=== PATIENT | female | born 1990 | race Two or more races ===

== ENCOUNTER 2017-06-04 08:00 | Outpatient (CLI) | payer MEDICAID | END 2017-06-04 08:01 | disposition home or self-care (01) | LOC: LAB.R 08:00 | PROVIDERS: ATTEND Obstetrics & Gynecology | DX: Z11.3 Encounter for screening for infections with a predominantly sexual mode of transmission (principal) | CPT/HCPCS: 87491; 87591 ==

== ENCOUNTER 2017-08-03 08:00 | Outpatient (CLI) | payer MEDICAID | END 2017-08-03 08:01 | disposition home or self-care (01) | LOC: LAB.R 08:00 | PROVIDERS: ATTEND Obstetrics & Gynecology | DX: Z11.3 Encounter for screening for infections with a predominantly sexual mode of transmission (principal) | CPT/HCPCS: 87491; 87591 ==

== ENCOUNTER 2017-10-30 14:37 | Outpatient (CLI) | payer MEDICAID | END 2017-10-30 14:38 | disposition home or self-care (01) | LOC: LAB.R 14:37 | PROVIDERS: ATTEND Registered Nurse | DX: Z11.3 Encounter for screening for infections with a predominantly sexual mode of transmission (principal) | CPT/HCPCS: 87491; 87591 ==

== ENCOUNTER 2017-12-11 08:00 | Outpatient (CLI) | payer MEDICAID | END 2017-12-11 08:01 | disposition home or self-care (01) | LOC: LAB.R 08:00 | PROVIDERS: ATTEND Registered Nurse | DX: Z30.430 Encounter for insertion of intrauterine contraceptive device (principal) | CPT/HCPCS: 87491; 87591 ==

== ENCOUNTER 2018-03-17 08:00 | Outpatient (CLI) | payer MEDICAID | END 2018-03-17 08:01 | disposition home or self-care (01) | LOC: LAB.R 08:00 | PROVIDERS: ATTEND Registered Nurse | DX: Z11.3 Encounter for screening for infections with a predominantly sexual mode of transmission (principal) | CPT/HCPCS: 87491; 87591 ==

== ENCOUNTER 2018-06-08 08:00 | Outpatient (CLI) | payer MEDICAID | END 2018-06-08 23:59 | LOC: LAB.R 08:00 | PROVIDERS: ATTEND Registered Nurse | DX: B37.3 Candidiasis of vulva and vagina (principal) | CPT/HCPCS: 87491; 87591 ==

== ENCOUNTER 2019-03-07 18:37 | Emergency (ER) | payer MEDICAID ==
--- NOTE | 2019-03-07 20:39 | ED Physician Documentation ---
PD HPI SKIN - Stated complaint Stated Complaint: CYST ON BACK - Chief complaint Chief Complaint: General - History obtained from History obtained from: Patient - History of Present Illness Timing - onset: How many weeks ago (1 1/2 weeks of cyst tender on tailbone area and gotten larger and red, more painful the past couple of days.) Timing - details: Gradual onset, Still present Location: Other (tailbone area) Quality / character: Painful, Discolored (red), Swelling. 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 : None HEENT: None Psych: None Musculoskeletal: None Derm: None - Past Surgical History Past Surgical History: Yes - Present Medications Home Medications: Ambulatory Orders Medication Instructions Recorded Confirmed Vit W-Ca,Fe,FA(<1 mg) 1 tab PO DAILY 02/17/14 02/17/14 [ Vitamins] Adalimumab [Humira] 10 mg SQ 03/07/19 Sulfamethox/Trimeth 800/160 1 each PO BID #14 tablet 03/07/19 [Bactrim Ds 800/160] - Allergies Allergies/Adverse Reactions: Allergies Allergy/AdvReac Type Severity Reaction Status Date / Time No Known Drug Allergies Allergy Verified 03/07/19 18:45 - Social History Does the pt smoke?: No Smoking Status: Former smoker Does the pt drink ETOH?: Yes Does the pt have substance abuse?: No - Immunizations Immunizations are current?: Yes - POLST Patient has POLST: No PD ED PE NORMAL - Vitals Vital signs reviewed: Yes - General General: Alert and oriented X 3, No acute distress, Well developed/nourished - Abdomen Abdomen: Soft, Non tender - Back Back: Other (tailbone area with focal tenderness left of midline, with redness and swelling. fluctuance. ) - Derm Derm: Normal color, Warm and dry Results - Vitals Vitals: Oxygen O2 Source Room air - Labs Labs: Microbiology 03/07/19 21:09 Wound Culture - Final Abscess Procedures - Abscess I&D (location) pilonidal area Preparation: Lidocaine 1%, With epi Incision: Incised with scalpel, Purulent drainage, Irrigated, Culture obtained. No: Packed Other: Pt tolerated well, Dressing applied, Antibiotic prescribed PD MEDICAL DECISION MAKING - ED course Complexity details: considered differential (infected recurrent pilonidal cyst, with I&D.), d/w patient Departure - Departure Disposition: 01 Home, Self Care Clinical Impression: Infected pilonidal cyst Condition: Stable Record reviewed to determine appropriate education?: Yes Instructions: ED Cyst Pilonidal Infected IandD Prescriptions: Sulfamethox/Trimeth 800/160 [Bactrim Ds 800/160] 1 each PO BID #14 tablet Comments: Warm soaks or warm moist towels to the area a few times a day. This will help promote drainage from the incision hole. Bactrim antibiotic twice daily for a week for the infection. Naproxen or ibuprofen 2-3 times a day for pain and inflammation. Add Tylenol if needed. Recheck if not improved over the next few days. We did do a culture and will result in 2 to 3 days and will call you if we need to change antibiotics based on that. Discharge Date/Time: 03/07/19 21:54
[2019-03-07] MEDS ORDERED: SULFAMETH/TRIMETH DS 800/160 MG TABLET PO STA (21:12)
[2019-03-07] MEDS ORDERED: IBUPROFEN 600 MG TABLET PO STA (21:12)
[2019-03-07] MEDS ORDERED: ACETAMINOPHEN 325 MG TABLET PO STA (21:12)
[2019-03-07 21:54] VITALS: BP 101/51
== END 2019-03-07 21:54 | disposition home or self-care (01) ==
LOC: ED 18:37
DX: L05.91 Pilonidal cyst without abscess (principal); Z87.891 Personal history of nicotine dependence
CPT/HCPCS: 10080; 87070; 87205; 99283; A9270

== ENCOUNTER 2019-07-27 09:30 | Outpatient (CLI) | payer MEDICAID ==
[2019-07-27 20:28] LABS: CANDIDA GROUP DNA NEGATIVE (NEGATIVE); CANDIDA KRUSEI DNA NEGATIVE (NEGATIVE); TRICHOMONAS VAGINALIS DNA NEGATIVE (NEGATIVE)
[2019-07-27 21:59] LABS: TRICHOMONAS VAGINALIS DNA NEGATIVE (NEGATIVE)
== END 2019-07-27 23:59 | disposition home or self-care (01) ==
LOC: LAB.R 09:30
PROVIDERS: ATTEND Nurse Practitioner Obstetrics & Gynecology
DX: Z11.3 Encounter for screening for infections with a predominantly sexual mode of transmission (principal); L29.8 Other pruritus
CPT/HCPCS: 87491; 87591; 87661; 87801

== ENCOUNTER 2019-08-04 18:03 | Outpatient (CLI) | payer MEDICAID ==
[2019-08-05 13:36] LABS: HEPATITIS C ANTIBODY NON-REACTIVE (NON-REACTIVE)
[2019-08-05 14:06] LABS: HIV AG/AB 4TH GEN NON-REACTIVE (NON-REACTIVE)
[2019-08-06 12:51] LABS: HSV 1 IGG TYPE SPECIFIC AB <0.90 index; HSV 2 IGG TYPE SPECIFIC AB <0.90 index
== END 2019-08-04 18:04 | disposition home or self-care (01) ==
LOC: LAB 18:03
PROVIDERS: ATTEND Nurse Practitioner Obstetrics & Gynecology
DX: Z11.3 Encounter for screening for infections with a predominantly sexual mode of transmission (principal)
CPT/HCPCS: 36415; 81599; 86592; 86695; 86696; 86803; 87389; 87491; 87591; 87661

== ENCOUNTER 2020-06-08 08:41 | Emergency (ER) | payer MEDICAID ==
--- NOTE | 2020-06-08 09:16 | XRAY Report ---
PROCEDURE: Knee 3 View RT INDICATIONS: injury TECHNIQUE: 3 views of the right knee(s) were acquired. COMPARISON: None. FINDINGS: Bones: No fractures or dislocations. No suspicious bony lesions. Soft tissues: No joint effusion. No suspicious soft tissue calcifications. IMPRESSION: Negative examination. If the patient's pain or other symptoms persist, consider further evaluation wi MRI. Reviewed by: Nicola Asencio MD on 06/08/2020 9:14 AM PDT Approved by: Nicola Asencio MD on 06/08/2020 9:14 AM PDT Station ID: [id number]
--- NOTE | 2020-06-08 09:57 | ED Physician Documentation ---
History of Present Illness - Stated complaint Stated Complaint: RT KNEE PX - Chief complaint Chief Complaint: Ext Problem - History obtained from History obtained from: Patient - Additonal information Additional information: Patient comes emergency department complaining of right knee pain that started yesterday. She states that she was having some pain in the arch of her left foot throughout the day and that later, she noticed pain in her right knee. She states that it hurts much to lay on it last night that she was crying. However, she states that if she supports her right thigh and attempts to flex and extend the knee, she does not have any pain. She states that she has felt a little bit of a popping feeling in her medial right knee. Patient denies any direct trauma. She has not been working in any sort of sports. No running. Patient states that she has no history of injury to her procedure involving her right knee. Patient does note that a couple of weeks ago, she had pain in her bilateral wrists and was unable to open jars because of it. This lasted for a few days and then went away on its own. Patient denies any joint issues prior. She does note that her mother has rheumatoid arthritis, but patient has never been tested for it. No joint swelling, including the patient's right knee. No other complaints at this time. Review of Systems Ten Systems: 10 systems reviewed and negative Constitutional: reports: Reviewed and negative Eyes: reports: Reviewed and negative Ears: reports: Reviewed and negative Nose: reports: Reviewed and negative Throat: reports: Reviewed and negative Cardiac: reports: Reviewed and negative Respiratory: reports: Reviewed and negative GI: reports: Reviewed and negative : reports: Reviewed and negative Skin: reports: Reviewed and negative Musculoskeletal: reports: Joint pain Neurologic: reports: Reviewed and negative Psychiatric: reports: Reviewed and negative Endocrine: reports: Reviewed and negative Immunocompromised: reports: Reviewed and negative PD PAST MEDICAL HISTORY - Past Medical History Cardiovascular: None Respiratory: None Neuro: None Endocrine/Autoimmune: None GI: None 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 : None HEENT: None Psych: None Musculoskeletal: None Derm: None - Past Surgical History Past Surgical History: Yes - Present Medications Home Medications: Ambulatory Orders Medication Instructions Recorded Confirmed Vit W-Ca,Fe,FA(<1 mg) 1 tab PO DAILY 02/17/14 02/17/14 [ Vitamins] Adalimumab [Humira] 10 mg SQ 03/07/19 Sulfamethox/Trimeth 800/160 1 each PO BID #14 tablet 03/07/19 [Bactrim Ds 800/160] - Allergies Allergies/Adverse Reactions: Allergies Allergy/AdvReac Type Severity Reaction Status Date / Time No Known Drug Allergies Allergy Verified 06/08/20 08:46 - Social History Does the pt smoke?: No Smoking Status: Never smoker Does the pt drink ETOH?: Yes Does the pt have substance abuse?: No - Immunizations Immunizations are current?: Yes - POLST Patient has POLST: No PD ED PE NORMAL - Vitals Vital signs reviewed: Yes - General General: Alert and oriented X 3, No acute distress - HEENT HEENT: Atraumatic, PERRL, EOMI, Moist mucous membranes - Neck Neck: Supple, no meningeal sign - Cardiac Cardiac: Strong equal pulses - Respiratory Respiratory: No respiratory distress - Derm Derm: Normal color, Warm and dry, No rash - Extremities Extremities: No deformity, No tenderness to palpate, No edema, No calf tenderness / cord - Neuro Neuro: Alert and oriented X 3, 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 We have discussed OTC pain control at home, and the need for follow-up if her sx don't resolve in the next week or two. We have also discussed that given her family h/o RA, this possibility should be explored by her PCP if pt continues to have random, spontaneous joint issues. Departure - Departure Disposition: 01 Home, Self Care Clinical Impression: Knee pain Qualifiers: Chronicity: acute Laterality: right Qualified Code(s): M25.561 - Pain in right knee Condition: Stable Instructions: ED Meniscal Injury Knee Poss, ED Knee Pain UKO Comments: There is no evidence of a serious problem with your knee today. Your x-ray looks good. However, as we have discussed, if you continue to have various joints with pain and dysfunction, you should talk to your doctor about being evaluated for rheumatoid arthritis, since this does run in your family. At this point in time, however, you may use ibuprofen and Tylenol, and get a neoprene sleeve from when the pharmacy is or general store, such as [employer] or [employer], and use this for support and comfort. Discharge Date/Time: 06/08/20 10:27
[2020-06-08 10:27] VITALS: BP 121/72
== END 2020-06-08 10:27 | disposition home or self-care (01) ==
LOC: ED 08:41
DX: M25.561 Pain in right knee (principal); Z82.61 Family history of arthritis
CPT/HCPCS: 99282; 99283

== ENCOUNTER 2020-06-13 11:13 | Outpatient (CLI) | payer MEDICAID ==
[2020-06-13 18:38] LABS: MEAN CORPUSCULAR HEMOGLOBIN 22.5 pg (27.0-31.0); MEAN CORPUSCULAR HGB CONC 29.9 g/dL (32.0-36.0); MEAN CORPUSCULAR VOLUME 75.4 fL (81.0-99.0); MEAN PLATELET VOLUME 11.2 fL (7.9-10.8); RED BLOOD COUNT 4.88 10^6/uL (4.20-5.40); RED CELL DISTRIBUTION WIDTH 15.7 % (12.0-15.0); WHITE BLOOD COUNT 8.4 x10^3/uL (4.8-10.8)
[2020-06-13 18:39] LABS: URIC ACID 4.8 mg/dL (2.6-7.2)
[2020-06-13 19:05] LABS: CRP - C-REACTIVE PROTEIN < 1.0 mg/dL (0-1.0)
[2020-06-13 20:18] LABS: RHEUMATOID FACTOR NEGATIVE (Negative)
[2020-06-15 16:06] LABS: DNA (DS) ANTIBODY 3 IU/mL
[2020-06-15 21:15] LABS: CYCLIC CITRULL PEPTIDE CCP IGG <16 UNITS
[2020-06-20 15:15] LABS: ANA SCREEN NEGATIVE (NEGATIVE)
== END 2020-06-13 23:59 | disposition home or self-care (01) ==
LOC: LAB.WCP 11:13
PROVIDERS: ATTEND Family Medicine
DX: M25.50 Pain in unspecified joint (principal)
CPT/HCPCS: 36415; 84550; 85027; 85651; 86038; 86140; 86200; 86225; 86430

== ENCOUNTER 2020-11-07 17:18 | Outpatient (CLI) | payer MEDICAID ==
[2020-11-08 12:40] LABS: HEPATITIS B SURFACE ANTIGEN NON-REACTIVE (NON-REACTIVE); HEPATITIS C ANTIBODY NON-REACTIVE (NON-REACTIVE)
[2020-11-08 13:56] LABS: HIV AG/AB 4TH GEN NON-REACTIVE (NON-REACTIVE)
[2020-11-09 13:01] LABS: HSV 1 IGG TYPE SPECIFIC AB <0.90 index; HSV 2 IGG TYPE SPECIFIC AB <0.90 index
== END 2020-11-07 17:19 | disposition home or self-care (01) ==
LOC: LAB 17:18
PROVIDERS: ATTEND Nurse Practitioner Obstetrics & Gynecology
DX: Z11.3 Encounter for screening for infections with a predominantly sexual mode of transmission (principal)
CPT/HCPCS: 36415; 81599; 86592; 86593; 86695; 86696; 86780; 86803; 87340; 87389

== ENCOUNTER 2020-11-08 07:00 | Outpatient (CLI) | payer MEDICAID ==
[2020-11-08 23:48] LABS: TRICHOMONAS VAGINALIS DNA NEGATIVE (NEGATIVE)
== END 2020-11-08 23:59 | disposition home or self-care (01) ==
LOC: LAB.R 07:00
PROVIDERS: ATTEND Nurse Practitioner Obstetrics & Gynecology
DX: Z11.3 Encounter for screening for infections with a predominantly sexual mode of transmission (principal)
CPT/HCPCS: 87491; 87591; 87661

== ENCOUNTER 2021-03-08 14:46 | Outpatient (CLI) | payer MEDICAID | END 2021-03-08 14:47 | disposition home or self-care (01) | LOC: COV 14:46 | PROVIDERS: ATTEND Surgery | DX: Z01.812 Encounter for preprocedural laboratory examination (principal); M79.622 Pain in left upper arm; M79.621 Pain in right upper arm; R22.9 Localized swelling, mass and lump, unspecified; Z20.822 Contact with and (suspected) exposure to COVID-19 ==

== ENCOUNTER 2021-03-11 06:33 | Day surgery (SDC) | payer MEDICAID ==
[2021-03-11 06:55] LABS: HCG UR QUAL NEGATIVE
[2021-03-11] MEDS ORDERED: LACTATED RINGERS 1,000 ML IV ONE ×2 (07:01→09:36)
[2021-03-11] MEDS ORDERED: BUPIVACAINE 0.5%-EPI 1:200000 PF 30 ML VIAL ONE (07:15)
[2021-03-11] MEDS ORDERED: LIDOCAINE-MPF 1% 30 ML VIAL ONE (07:15)
[2021-03-11] MEDS ORDERED: MIDAZOLAM 2 MG/2 ML VIAL ONE (07:24)
[2021-03-11] MEDS ORDERED: LIDOCAINE-MPF 2% 5 ML VIAL ONE (07:24)
[2021-03-11] MEDS ORDERED: PROPOFOL 200 MG/20 ML VIAL IVP ONE ×2 (07:24→09:25)
[2021-03-11] MEDS ORDERED: fentaNYL 100 MCG/2 ML VIAL ONE (07:24)
[2021-03-11] MEDS ORDERED: ceFAZolin 2 GM/50 ML 2 GM/50 ML BAG IV ONE (07:24)
[2021-03-11] MEDS ORDERED: DEXAMETHASONE 4 MG/ML VIAL ONE (07:25)
[2021-03-11] MEDS ORDERED: ONDANSETRON 4 MG/2 ML VIAL ONE ×2 (07:25→10:58)
--- NOTE | 2021-03-11 07:25 | ANESTHESIA ---
Pre-Anesthesia VS, & Labs - Diagnosis painful bilateral axillary breast tissue - Procedure excision of bilateral axillary breast tissue Vital Signs: Temp Pulse Resp BP Pulse Ox 36.2 C L 85 15 105/72 97 03/11/21 07:01 03/11/21 07:01 03/11/21 07:01 03/11/21 07:01 03/11/21 07:01 Height: 5 ft 8 in Weight (kg): 91.8 kg Body Mass Index: 30.7 BMI Classification: Obese - NPO >8 hours - Is Patient ?: No Home Medications and Allergies Home Medications: Ambulatory Orders Etonogestrel [Nexplanon] 68 mg SQ ONCE 02/26/21 Adalimumab [Humira] 40 mg SQ OAW 03/07/19 Etonogestrel [Nexplanon] 68 mg SQ ONCE 02/26/21 Allergies/Adverse Reactions: Allergies Allergy/AdvReac Type Severity Reaction Status Date / Time lavender (Lavandula Allergy Rash, Verified 03/11/21 07:09 angustifolia) headache Anes History & Medical History - Anesthetic History Anesthesia Complications: reports: No previous complications - Medical History Cardiovascular: reports: None Pulmonary: reports: None Gastrointestinal: reports: None Urinary: reports: None Neuro: reports: None Musculoskeletal: reports: Osteoarthritis Endocrine/Autoimmune: reports: None Blood Disorders: reports: None Skin: reports: Eczema, Other (Hydratanosis supurlative) Smoking Status: Former smoker (quit 8 years ago) Psychosocial: reports: Alcohol (once per week, 1-2 beers) History of Cancer?: No - Surgical History Dermatologic: reports: Other (HS excision jordan groin area) Exam General: Alert, Oriented x3, Cooperative, No acute distress Dental: WNL Mouth Openin Fingerbreadth Neck Mobility: Normal Mallampati classification: I Thyromental Distance: 4-6 cm Respiratory: Lungs clear, Normal breath sounds, No respiratory distress, No accessory muscle use Cardiovascular: Regular rate, Normal S1, Normal S2, No murmurs Mental/Cognitive Status: Alert/Oriented X3, Normal for patient Plan Anesthesia Type: General Consent for Procedure(s) Verified and Reviewed: Yes Code Status: Attempt Resuscitation ASA classification: 2-Mild systemic disease Is this case an emergency?: No
[2021-03-11] MEDS: SCOPOLAMINE PATCH TOP ONE ×2 (07:30→07:40)
[2021-03-11] MEDS ORDERED: SCOPOLAMINE PATCH TOP SCH (08:00)
[2021-03-11] MEDS ORDERED: LIDOCAINE 1% 50 ML MDV SUBQ ONE (08:40)
[2021-03-11] MEDS ORDERED: BUPIVACAINE 0.5%-EPI 1:200000 PF 30 ML VIAL SUBQ ONE (08:42)
[2021-03-11] MEDS ORDERED: ONDANSETRON 4 MG/2 ML VIAL IVP PRN (09:14)
[2021-03-11] MEDS ORDERED: MORPHINE 2 MG/ML CARPUJECT IVP PRN (09:14)
[2021-03-11] MEDS ORDERED: HYDROmorphone 0.5 MG/0.5 ML SYRINGE IVP PRN (09:14)
[2021-03-11] MEDS ORDERED: ATROPINE ABBOJECT 1 MG/10 ML SYRINGE IVP PRN (09:14)
[2021-03-11] MEDS ORDERED: fentaNYL 100 MCG/2 ML VIAL IVP PRN (09:14)
[2021-03-11] MEDS ORDERED: NALOXONE 0.4 MG/ML VIAL IVP PRN (09:14)
[2021-03-11] MEDS ORDERED: KETOROLAC 15 MG/ML VIAL IVP PRN (09:49)
[2021-03-11] MEDS ORDERED: LACTATED RINGERS 1,000 ML IV SCH (10:00)
[2021-03-11] MEDS ORDERED: oxyCODONE 5 MG TABLET PO PRN (10:20)
[2021-03-11] MEDS ORDERED: oxyCODONE 5 MG TABLET ONE (10:35)
[2021-03-11 11:37] VITALS: BP 106/61
--- NOTE | 2021-03-11 13:51 | ANESTHESIA POST OP EVALUATION ---
Anesthesia Post Eval - Post Anesthesia Eval Vitals: Last Vital Signs Temp 36.3 C L 03/11/21 11:36 Pulse 79 03/11/21 11:36 Resp 16 03/11/21 11:36 BP 106/61 03/11/21 11:36 Pulse Ox 99 03/11/21 11:36 CV Function Including HR & BP: Stable Pain Control: Satisfactory Nausea & Vomiting: Negative Mental Status: Baseline Respiratory Status: Airway Patent Hydration Status: Satisfactory Anesthesia Complications: None
--- NOTE | 2021-03-26 16:31 | OPERATIVE REPORT ---
Operative Report - General Planned Procedure: Excision of bilateral axillary breast tissue Pre-Op Diagnosis: Symptomatic bilateral axillary breast tissue Procedure Performed: Excision of bilateral axillary breast tissue with drain placement Post Op Diagnosis: Symptomatic bilateral axillary breast tissue. - Procedure Note Primary Surgeon: Brian Anesthesia Provider: GRETA Mack Anesthesia Technique: General LMA Pathology: 1. Right axillary tissue to pathology in formalin 2. Left axillary tissue to pathology in formalin Estimated Blood Loss (mL): 50 Drain/Tube Type: Dillon drain (2 - 15 Green[place]ic Dillon drains. One in each pocket) Indications: Symptomatic and enlarged bilateral axillary breast tissue Findings: Benign tissue consistent with breast origin in bilateral axillary spaces Complications: None apparent - Other Other Information/Narrative: After obtaining informed consent, the patient is brought to the operating room and placed in the supine position on the operating table. Following successful induction of general endotracheal anesthesia, appropriate padding of all bony prominences, and placement of appropriate monitors, bilateral axilla and chest were prepped and draped in the standard surgical fashion. A timeout was held per scope protocol. All elements of the surgical safety checklist were followed before, during, and after the procedure. We began on the right side. An area was infiltrated with a mixture of local anesthetics in a natural skin fold in the right axilla. An incision was created here and carried down through the skin and subcutaneous tissue. Breast tissue was revealed. This tissue was normal in appearance with identifiable Giovani ligaments consistent with normal breast tissue. The tissue was carefully dissected off of the dermis in a circumferential fashion. It was then lifted off of the axillary fat pad in a medial to lateral fashion using mixture of cautery and sharp dissection. The tissue was passed from the table as a specimen. The axilla was then checked for hemostasis. A 15 Green[place]ic Dillon drain was placed in the axillary pocket and brought out medially. The wound was then closed in 2 layers with Vicryl and Monocryl suture. We turned our attention to the left breast. Once again, and area was infiltrated with a mixture of local anesthetics in a natural skin fold in the left axilla. An incision was created here and carried down through the skin and subcutaneous tissue. Breast tissue was revealed. This tissue was normal in appearance with identifiable Giovani ligaments consist ent with normal breast tissue. The tissue was carefully dissected off of the dermis in a circumferential fashion. It was then lifted off of the axillary fat pad in a medial to lateral fashion using mixture of cautery and sharp dissection. The tissue was passed from the table as a specimen. The axilla was then checked for hemostasis. A 15 [place]ic Dillon drain was placed in the axillary pocket and brought out medially. The wound was then closed in 2 layers with Vicryl and Monocryl suture. All sponge, needle, and instrument counts were correct at the conclusion of the case. The patient was let awake from anesthesia without difficulty and taken to the postanesthesia care unit in good condition.
== END 2021-03-11 06:34 | disposition home or self-care (01) ==
LOC: SDS 06:33
PROVIDERS: ATTEND Surgery
PROC: 0HBV0ZZ Excision of Bilateral Breast, Open Approach (ICD-10-PCS; principal; 2021-03-11 07:30)
DX: Q83.1 Accessory breast (principal); M79.622 Pain in left upper arm; M79.621 Pain in right upper arm; D64.9 Anemia, unspecified; L73.2 Hidradenitis suppurativa; D57.3 Sickle-cell trait; E66.9 Obesity, unspecified; Z68.30 Body mass index [BMI] 30.0-30.9, adult; Z87.891 Personal history of nicotine dependence; Z79.3 Long term (current) use of hormonal contraceptives; Z79.899 Other long term (current) drug therapy
CPT/HCPCS: 19120; 81025; 88305; A9270; J0690; J3490; J7120

== ENCOUNTER 2021-07-01 06:23 | Day surgery (SDC) | payer MEDICAID ==
[2021-07-01] MEDS ORDERED: LACTATED RINGERS 1,000 ML IV ONE (06:29)
[2021-07-01 06:42] LABS: HCG UR QUAL NEGATIVE
[2021-07-01] MEDS ORDERED: LIDOCAINE 2%-EPI 1:100000 20 ML MDV ONE (07:05)
[2021-07-01] MEDS ORDERED: BUPIVACAINE 0.25% PF 30 ML VIAL ONE (07:06)
--- NOTE | 2021-07-01 07:07 | ANESTHESIA ---
Pre-Anesthesia VS, & Labs - Diagnosis axillary nodules, right - Procedure right axillary nodule excision Vital Signs: Temp Pulse Resp BP Pulse Ox 36.1 C L 80 16 119/67 99 07/01/21 06:36 07/01/21 06:36 07/01/21 06:36 07/01/21 06:36 07/01/21 06:36 Height: 5 ft 8 in Weight (kg): 98 kg Body Mass Index: 32.8 BMI Classification: Obese - NPO >8 hours - Is Patient ?: No Home Medications and Allergies Etonogestrel [Nexplanon] 68 mg SQ ONCE 02/26/21 Allergies/Adverse Reactions: Allergies Allergy/AdvReac Type Severity Reaction Status Date / Time lavender (Lavandula Allergy Rash, Verified 03/11/21 07:09 angustifolia) headache Anes History & Medical History - Anesthetic History Anesthesia Complications: reports: No previous complications - Medical History Cardiovascular: reports: None Pulmonary: reports: None Gastrointestinal: reports: None Urinary: reports: None Neuro: reports: None Musculoskeletal: reports: None Endocrine/Autoimmune: reports: None Blood Disorders: reports: None Skin: reports: Eczema Smoking Status: Former smoker (quit 8 years ago) History of Cancer?: No - Surgical History Dermatologic: reports: Other (HS excision jordan groin area) Exam General: Alert Dental: WNL Neck Mobility: Normal Mallampati classification: I Thyromental Distance: greater than 6 cm Respiratory: Lungs clear Cardiovascular: Regular rate Plan Anesthesia Type: General Consent for Procedure(s) Verified and Reviewed: Yes Code Status: Attempt Resuscitation ASA classification: 2-Mild systemic disease Is this case an emergency?: No
[2021-07-01] MEDS ORDERED: SCOPOLAMINE PATCH TOP ONE (07:09)
[2021-07-01] MEDS ORDERED: HYDROmorphone 0.5 MG/0.5 ML SYRINGE IVP PRN (07:10)
[2021-07-01] MEDS ORDERED: ONDANSETRON 4 MG/2 ML VIAL IVP PRN ×2 (07:10→09:20)
[2021-07-01] MEDS ORDERED: METOCLOPRAMIDE 10 MG/2 ML VIAL IVP PRN (07:10)
[2021-07-01] MEDS ORDERED: ATROPINE ABBOJECT 1 MG/10 ML SYRINGE IVP PRN (07:10)
[2021-07-01] MEDS ORDERED: MORPHINE 2 MG/ML CARPUJECT IVP PRN (07:10)
[2021-07-01] MEDS ORDERED: fentaNYL 100 MCG/2 ML VIAL IVP PRN (07:10)
[2021-07-01] MEDS ORDERED: NALOXONE 0.4 MG/ML VIAL IVP PRN (07:10)
[2021-07-01] MEDS ORDERED: ePHEDrine 50 MG/ML VIAL IVP PRN (07:10)
[2021-07-01] MEDS ORDERED: PROPOFOL 200 MG/20 ML VIAL IVP ONE (07:17)
[2021-07-01] MEDS ORDERED: MIDAZOLAM 2 MG/2 ML VIAL ONE (07:17)
[2021-07-01] MEDS ORDERED: DEXAMETHASONE 4 MG/ML VIAL ONE (07:23)
[2021-07-01] MEDS ORDERED: SCOPOLAMINE PATCH TOP SCH (08:00)
[2021-07-01] MEDS ORDERED: LACTATED RINGERS 1,000 ML IV SCH (08:00)
[2021-07-01] MEDS ORDERED: ceFAZolin 1 GM VIAL ONE (08:55)
[2021-07-01] MEDS ORDERED: LIDOCAINE 2%-EPI 1:100000 20 ML MDV SUBQ ONE (09:06)
[2021-07-01] MEDS ORDERED: BUPIVACAINE 0.25% PF 30 ML VIAL SUBQ ONE (09:06)
[2021-07-01] MEDS ORDERED: oxyCODONE 5 MG TABLET PO PRN (09:20)
[2021-07-01] MEDS ORDERED: ACETAMINOPHEN 325 MG TABLET PO PRN (09:20)
[2021-07-01] MEDS ORDERED: IBUPROFEN 600 MG TABLET PO PRN (09:20)
[2021-07-01] MEDS ORDERED: LACTATED RINGERS 150 ML IV ONE (09:30)
[2021-07-01] MEDS ORDERED: ONDANSETRON 4 MG/2 ML VIAL ONE (10:06)
[2021-07-01 10:52] VITALS: BP 120/66
--- NOTE | 2021-07-01 16:39 | ANESTHESIA POST OP EVALUATION ---
Anesthesia Post Eval - Post Anesthesia Eval Vitals: Last Vital Signs Temp 36.6 C 07/01/21 10:45 Pulse 90 07/01/21 10:45 Resp 14 07/01/21 10:45 BP 120/66 07/01/21 10:45 Pulse Ox 98 07/01/21 10:45 CV Function Including HR & BP: Stable Pain Control: Satisfactory Nausea & Vomiting: Negative Mental Status: Baseline Respiratory Status: Airway Patent Hydration Status: Satisfactory Anesthesia Complications: None
--- NOTE | 2021-07-16 17:31 | OPERATIVE REPORT ---
Operative Report - General Planned Procedure: Excision of redundant skin and nodule in the right axilla Pre-Op Diagnosis: Redundant skin and painful nodularity following excision of Axillary breast Procedure Performed: Excision of redundant skin and painful nodule with primary closure of axillary wound. Post Op Diagnosis: Redundant skin and painful nodularity following excision of Axillary breast - Procedure Note Primary Surgeon: Brian Pathology: Portion of skin and associated subcutaneous tissue to pathology in formalin Estimated Blood Loss (mL): 10 Findings: Axillary breast tissue without any evidence of infection, painful nodularity without any evidence of neoplastic process. Complications: None apparent - Other Other Information/Narrative: After obtaining informed consent, the patient is brought to the operating room and placed in the supine position on the operating table. Following successful induction of general endotracheal anesthesia, appropriate padding of all bony prominences, and placement appropriate monitors, the right axilla was prepped and draped in the standard surgical fashion. A timeout was held per scope protocol. All elements of the surgical safety checklist were followed before, during, and after the procedure. Following infiltration with local anesthetic to create a field block, an elliptical incision was designed to include all of the redundant skin, the nodule, and to bland the scar and with the existing tissue. This was performed with a 15 blade scalpel and taken through the skin and subcutaneous tissue. The entire piece of skin was excised in total and removed. The excised portion of tissue was 9 x 4 cm.The skin defect was then addressed with Vicryl Monocryl suture and Dermabond was applied to the surface. All sponge, needle, and instrument counts were correct at the conclusion of the case. The patient was allowed to wake from anesthesia without difficulty and taken to the postanesthesia care unit in good condition.
== END 2021-07-01 06:24 | disposition home or self-care (01) ==
LOC: SDS 06:23
PROVIDERS: ATTEND Surgery
PROC: 0HB5XZZ Excision of Chest Skin, External Approach (ICD-10-PCS; principal; 2021-07-01 07:30)
DX: L98.7 Excessive and redundant skin and subcutaneous tissue (principal); L75 Apocrine sweat disorders; D57.3 Sickle-cell trait; D64.9 Anemia, unspecified; E66.9 Obesity, unspecified; Z68.32 Body mass index [BMI] 32.0-32.9, adult; Z87.891 Personal history of nicotine dependence; Z79.899 Other long term (current) drug therapy
CPT/HCPCS: 11406; 81025; 88305; J3490; J7120

== ENCOUNTER 2021-08-09 08:00 | Outpatient (CLI) | payer MEDICAID | END 2021-08-09 23:59 | LOC: LAB.N 08:00 | PROVIDERS: ATTEND Nurse Practitioner | DX: L08.9 Local infection of the skin and subcutaneous tissue, unspecified (principal) | CPT/HCPCS: 87070; 87077; 87181; 87205 ==

== ENCOUNTER 2021-10-07 08:00 | Outpatient (CLI) | payer MEDICAID | END 2021-10-07 23:59 | LOC: LAB 08:00 | PROVIDERS: ATTEND Emergency Medicine | DX: U07.1 COVID-19 (principal) ==

== ENCOUNTER 2022-01-22 15:18 | Outpatient (CLI) | payer OTHER ==
--- NOTE | 2022-01-22 16:19 | SLEEP CARE CONSULTATION ---
Information from patient questionnaire entered by Alejandro Fernandes MA. I have reviewed and concur with the information entered by Alejandro Fernandes MA. This document represents the service I personally performed and the decisions made by me, Elen Velez ARNP. History of Present Illness Service Date and Time: 01/22/2022 1518 Reason for Visit: New patient (ONSET 10/2021, NO PRIORS, ) Chief Complaint: reports: Unrefreshed sleep, Snoring, Excessive daytime sleepin ess, Fatigue Date of Onset: UNSURE Usual bedtime: 10 PM WEEK NIGHTS -0 WEEKENDS Time it takes to fall asleep: 20 MINUTES Snores at night: Yes Observed to quit breathing while asleep: No ( falls asleep before she does, ?not sure) Sleeps alone due to snoring: No Number of times waking at night: 2 Reasons for waking at night: reports: Pain (joint pain), Bathroom. denies: Choking, Gasping for air Toss, Turn, or Twitch while sleeping: Yes (roll around, doesn't always fully wake up to turn over) Recalls having dreams: No Usually gets out of bed at: [id number] Feels refreshed in the morning: No Morning headache: No Sleepy or fatigued during the day: Yes Ever fallen asleep while driving: No Takes day naps: Yes Dreams during day naps: No Prior sleep studies: No Additional HPI information: I had the pleasure of seeing NITZA SCHAFFER today regarding the possibility of her having a sleep disorder. Her current complaints are excessive daytime sleepiness, fatigue and snoring. She saw her dentist who told her her tonsils block her airway and that she should get a sleep study. She saw her primary doctor who referred her here. She states she wakes up unrefreshed and is always tired. She states in the middle of the day she could normally take a nap. She states she will take a nap if she is not working for 1-2 hours in afternoon. 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 Patient is Single and lives in [place]. Have you smoked in the past 12 months: No Cigarettes per day (20/pack): 18 Years of smokin Quit date: 2017 Smoking Pack Years: 4.5 Alcohol use: Yes Alcohol amount and frequency: 1-2 beers, 1-2 times a week Caffeine use: Yes Caffeine amount and frequency: 1 redbull on days she works Family History Family history of sleep disordered breathing: Yes Family Hx Sleep Apnea: Father: Snoring Allergies and Home Medications Known drug allergies: No Drug allergies reviewed: Yes (NKDA, allergy to lavender) Home medication list reviewed: Yes Allergy and home medication list: Allergies lavender (Lavandula angustifolia) Allergy (Verified 03/11/21 07:09) Rash, headache Medications: Tums, prn Review of Systems Weight gain over past 5 years: 40, most over last winter Cardiovascular: denies: high blood pressure Gastrointestinal: reports: heartburn Neurological: reports: head trauma (may have had concussion when 22 after fall). denies: headaches Psychiatric: reports: anxiety Ear/Nose/Throat: reports: wisdom teeth removed. denies: injury to nose, tonsillectomy Musculoskeletal: reports: joint pain, neck pain, back pain Immunologic: reports: allergies to food or environment (lavender) Physical Exam Vital signs obtained and entered by: Brenden FERNANDES CMA AAIN Blood Pressure: 127/92 (RIGHT, RESP 18, PULSE 78) Heart Rate: 80 O2 Saturation: 100 (TWO MASKS) Height: 5 ft 8 in Weight: 235 lb (CLOTHES) Body Mass Index: 35.7 BMI Classification: Obese Neck circumference: 15 (INCHES) Mouth and throat: narrow oropharynx Soft palate: long Hard palate: arched Uvula: normal Uvula visualization: 100% Mallampati Class I Tongue: enlarged in size with teeth lopez on lateral edges Tonsils: 2+ Neck: normal w/o lymphadenopathy or thyromegaly Heart: regular rate and rhythm Lungs: clear bilaterally Impression and Plan 1. Suspected Obstructive Sleep Apnea-Hypopnea Syndrome, as suggested by a history of loud and irregular snoring, unrefreshed sleep, cognitive impairment, and excessive daytime sleepiness. Narrow oropharynx and obesity are common predisposing factors for obstructive sleep apnea-hypopnea syndrome. I recommend proceeding to polysomnography to confirm the diagnosis and to assess severity. If the patient has significant sleep disordered breathing, a manual CPAP titration study will also be performed to find the optimal treatment pressure. I informed the patient of what the sleep studies involve and after some discussion, obtained agreement to proceed. The pathophysiology of obstructive sleep apnea-hypopnea syndrome was discussed with the patient and health risks of cardiovascular and cerebrovascular disease if not treated. Risks of drowsy driving discussed in detail and patient advised to avoid long distance driving and to well puller head at the first sign of drowsiness. Patient agreed to plan. * Schedule polysomnography * Avoid long distance driving or driving when feeling sleepy. * Avoid alcohol, sedative and muscle relaxant around bedtime. * Attempt to lose weight. * Review instructions provided by trained office staff on how to prepare for the sleep study. * Return for follow-up after sleep study completed. Counseling Topics: Weight loss health impact Visit Type: In Office Time Spent with Patient (minutes): 32 Provider Statement: I spent 100% of the Face to Face Visit with the patient with greater than 50% spent counseling the patient and coordination of care.
[2022-01-22 16:22] VITALS: BP 127/92
== END 2022-01-22 15:19 | disposition home or self-care (01) ==
LOC: SC 15:18
PROVIDERS: ATTEND Nurse Practitioner Family
DX: R06.83 Snoring (principal); G47.8 Other sleep disorders; R41.89 Other symptoms and signs involving cognitive functions and awareness; G47.10 Hypersomnia, unspecified; E66.9 Obesity, unspecified; Z68.35 Body mass index [BMI] 35.0-35.9, adult
CPT/HCPCS: 99203; 99212

== ENCOUNTER 2022-02-04 20:30 | Outpatient (CLI) | payer OTHER | END 2022-02-04 20:31 | disposition home or self-care (01) | LOC: SC 20:30 | PROVIDERS: ATTEND Nurse Practitioner Family | DX: R06.83 Snoring (principal); G47.8 Other sleep disorders; R53.83 Other fatigue; G47.10 Hypersomnia, unspecified; F32.A Depression, unspecified | CPT/HCPCS: 95810 ==

== ENCOUNTER 2022-02-28 11:45 | Outpatient (CLI) | payer OTHER ==
--- NOTE | 2022-02-28 11:47 | SLEEP CARE CONSULTATION ---
Information from patient questionnaire entered by Alejandro Mariano MA. I have reviewed and concur with the information entered by Alejandro Mariano MA. This document represents the service I personally performed and the decisions made by , Elen Velez ARNP. History of Present Illness Service Date and Time: 02/28/2022 1120 Initial [place] Sleepiness Scale score: 10 (01/2022) Current [place] Sleepiness Scale score: 6 Additional HPI information: NITZA SCHAFFER returns via video telehealth visit for follow up and results of the recently performed polysomnography. The patient was informed of the following findings: No significant sleep disordered breathing with an average AHI of 4.4 and jayne oxygen saturation of 82%. Patient had an elevated supine AHI of 7.7. I explained the pathophysiology behind obstructive sleep apnea. Patient does not have sleep apnea and was advised how weight gain could increase the risk of developing sleep apnea in the future. I strongly encouraged the patient to lose weight. Patient does not have significant sleep disordered breathing but has elevated AHI in supine position so advised positional therapy. Methods to achieve positional management therapy were discussed; such as, positioning with pillows, wearing a T-shirt with tennis balls sewn into the back or obtaining commercial positional belts. Patient has light to loud snoring. Snoring can be reduced by weight loss. Weight loss is best achieved with diet consult. Patient instructed to contact PCP for referral. Snoring can also be treated with an oral appliance from a dentist. Advised to check insurance coverage. In addition, an ENT evaluation can be do to see if other treatment is indicated. Patient counseled not drink alcohol less than 4 hours before bedtime as it can increase snoring and apnea. Patient was cautioned about risks of drowsy driving until sleepiness symptoms resolve. Sleep Study - Results Type of Sleep Study: Polysomnography (F/U POLY, 02/04/2022, NEG) Prior sleep studies: No Polysomnography/Home Sleep Study results: IMPRESSION: The quality of the study is good. The patient had normal sleep efficiency. The sleep architecture was normal as well. Respiratory monitoring showed no significant sleep disordered breathing (AHI = 4.4) or hypoxia (jayne oxygen saturation of 82%, but only 0.5% to the total sleep time was spent with oxygen saturation below 90%). The few respiratory events occurred almost exclusively during supine sleep (supine AHI = 7.7; nonsupine = 2.13). Snore was light to loud in intensity. There was no significant periodic leg movement of sleep. Cardiac rhythm was normal sinus rhythm without significant arrhythmia. No abnormal behavior (parasomnia) observed during the night. Allergies and Home Medications Home medication list reviewed: Yes (no changes) Allergy and home medication list: Allergies lavender (Lavandula angustifolia) Allergy (Verified 03/11/21 07:09) Rash, headache Review of Systems Review of systems same as previous: Yes (no changes) Physical Exam Vital signs obtained and entered by: MARIANNA CARRASQUILLO Height: 5 ft 8 in Weight: 230 lb (per pt report) Body Mass Index: 34.9 BMI Classification: Obese Impression and Plan Snoring but no significant sleep disordered breathing. However, patient had an elevated supine AHI and I advised that patient avoid supine sleep. Patient advised that often weight loss will reduce snoring as well as apnea risk. An oral appliance can also be used for snoring. This would require a dental consultation. Patient cautioned not to use other online appliances as can cause bite issues. A list of accredited dentists in area and one local dentist who makes oral appliances given. Patient is advised to check if insurance will cover . An ENT consult can also be helpful to determine if any other treatment is an option. * Avoid supine sleep * Try to lose weight * Avoid alcohol consumption near bedtime * The patient is cautioned about driving until sleepiness is completely resolved. * Return as needed for follow up. Counseling Topics: Sleeping position, Weight loss health impact Visit Type: Telehealth Video ([phone] HOME, PRE APPT DONE BY MARIANNA CARRASQUILLO,) Video Type: Doximity Patient Location: Work Location of Provider: Office Patient agrees and consents to this telehealth visit type: Yes Patient agrees to have their insurance billed: Yes Time Spent with Patient (minutes): 10 Provider Statement: I spent 100% of the Telehealth Video Call with the patient with greater than 50% spent counseling the patient and coordination of care.
== END 2022-02-28 11:46 | disposition home or self-care (01) ==
LOC: SC 11:45
PROVIDERS: ATTEND Nurse Practitioner Family
DX: R09.02 Hypoxemia (principal)

== ENCOUNTER 2022-10-13 08:00 | Outpatient (CLI) | payer OTHER | END 2022-10-13 23:59 | disposition home or self-care (01) | LOC: LAB.N 08:00 | PROVIDERS: ATTEND Nurse Practitioner | DX: L02.91 Cutaneous abscess, unspecified (principal) | CPT/HCPCS: 87070; 87205 ==

== ENCOUNTER 2022-11-21 07:55 | Outpatient (CLI) | payer OTHER | END 2022-11-21 07:56 | disposition EMS.NT | LOC: EMS 07:55 | DX: Z04.1 Encounter for examination and observation following transport accident (principal) ==

== ENCOUNTER 2024-06-08 09:05 | Outpatient (CLI) | payer OTHER ==
--- NOTE | 2024-06-08 15:31 | Ultrasound Report ---
LIMITED ULTRASOUND OF RIGHT BREAST: 06/08/2024 CLINICAL: Palpable right breast lump. Images from [facility] dated 10/03/2023 were available for comparison. Color flow and real-time ultrasound of the right breast 12 o'clock region were performed. Lindsay scale images of the real-time examination were reviewed. There is a 4 cm x 3.6 cm x 1.4 cm oval complicated cyst with a thickened wall and a few thick, avascu lar septations in the right breast at 12 o'clock anterior depth 2 cm from the nipple. This oval comp licated cyst is hypoechoic with a well-defined boundary and posterior acoustic enhancement. This cor relates as palpated. Color flow imaging demonstrates that there is no vascularity present. Previou sly, it measured 4.2 x 3.9 x. 2.5 cm and had low level echoes internally. IMPRESSION: PROBABLY BENIGN The 4 cm complicated cyst in the right breast corresponds to the palpable abnormality, was previously characterized to be a galactocele in this patient who had recently been nursing. Given only mild int erval decrease in size, follow up ultrasound in 6 months is recommended to document continued resolut ion. Findings and recommendations were conveyed to the patient at time of exam. This exam was interpreted at Station ID: [id number]. Electronically Signed By: Cecilia almonte/:06/08/2024 13:33:53 ACR BI-RADS Category 3: Probably Benign [id number] BI-RADS CATEGORY: (3) - 3 Ultrasound [id number] 6 month follow-up LATERALITY: (R)
== END 2024-06-08 09:06 | disposition home or self-care (01) ==
LOC: DI 09:05
PROVIDERS: ATTEND Family Medicine
DX: N60.01 Solitary cyst of right breast (principal)